=== PATIENT | male | born 1995 ===

== ENCOUNTER 2017-05-21 22:57 | Emergency (ER) | payer SELFPAY ==
[~2017-05-21] VITALS: Ht 160 cm; Wt 71.0 kg
[2017-05-21 23:04] VITALS: TEMP 36.4; Ht 160 cm; Wt 71.0 kg
[2017-05-21] MEDS ORDERED: AMOX500T3 PO (23:40)
[2017-05-21] MEDS ORDERED: AMOXICILLIN HOME PACK 250 MG/TAB PO ONE (23:45)
--- NOTE | 2017-05-21 23:48 | EMERGENCY ROOM VISIT NOTE ---
History First contact with patient: 23:09 Chief Complaint: EAR PAIN Stated Complaint: L EAR ACHE History of Present Illness The patient is a 21 year old [place] speaking male who presents to the Emergency Room with complaints of intermittent left ear pain for the past month , worsening over the past few days. History was collected through the [place] Interpretation Line. The patient reports that he does not have a family doctor or insurance. He has not seen anyone else for his symptoms. He denies any preceding respiratory symptoms including runny nose, congestion, sore throat or cough. He denies any known injury to the ear, including Q-tip usage. He has not noticed any drainage from the ear. He has not taken any medicine for the pain, and rates his discomfort a 6 out of 10. Review of Systems Review of systems was deferred secondary to language interpretation barrier Past Medical/Surgical History Medical Problems: (1) No significant past medical history Surgical Problems: (1) No history of previous surgery Family History Unknown Social History Smoking Status: Never Smoker Marital Status: single Occupation Status: employed Current/Historical Medications Scheduled Amoxicillin (Amoxil), 1 TAB PO TID Physical Exam Vital Signs Date Time Temp Pulse Resp B/P (MAP) Pulse Ox O2 Delivery O2 Flow Rate FiO2 05/21/17 23:51 75 119/80 98 05/21/17 23:04 36.4 73 16 137/69 98 Room Air Physical Exam CONSTITUTIONAL: Healthy and well nourished. Patient does not appear in any acute distress on exam. HEENT: Normocephalic, atraumatic. Pupils equal, round and reactive. Right ear is normal. Examination of the left ear shows notable TM erythema and purulent effusion. Bony landmarks and light reflex are absent. No TM perforation or external auditory canal erythema or edema. Nares are clear. OROPHARYNX: No tonsillar hypertrophy, exudates or postnasal drip. NECK: Full active range of motion without discomfort. RESPIRATORY: Clear to auscultation bilaterally with no wheezing, crackles, rhonchi or stridor. CARDIOVASCULAR: Regular rate and rhythm with no murmurs, rubs or gallops. INTEGUMENTARY: No rash or other significant dermatologic conditions noted. NEUROLOGIC: No focal neurologic deficits noted. Medical Decision & Procedures Medications Administered Medications (Trade) Dose Ordered Sig/Trevin Route Start Time Stop Time Status Last Admin Dose Admin Amoxicillin (Amoxil 250MG Home Pack) 1 homepack UD ONCE PO 12/7/17 23:45 05/21/17 23:46 DC 05/21/17 23:44 1 [facility] ED Course Patient history and physical exam were performed using a language interpretation line. Vital signs were also reviewed and normal. The patient will be treated with amoxicillin 500 mg 3 times a day 10 days. He was encouraged to alternate ibuprofen and Tylenol as needed for pain. The patient was provided a written prescription for the amoxicillin as he does not have a preferred pharmacy. I asked the patient to follow-up with ENT on-call, Dr. Valdovinos, in 2 weeks. If he has difficulty establishing this appointment, he was instructed to call the emergency department and ask to speak with the immigration case manager. I did discuss this with the immigration case manager to have a note entered into the system. The immigration case manager did provided contact information for [employer] [facility] that was written in [place]. The patient was instructed to return to the emergency department sooner for any progressively worsening symptoms, drainage from the ear or fever. The patient voiced understanding of his condition, plans for treatment and ENT follow-up. Medical Decision Medication Reconcilliation Current Medication List: was personally reviewed by me Blood Pressure Screening Patient's blood pressure: Normal blood pressure Impression Primary Impression: Left otitis media with effusion Departure Information Dispostion Home / Self-Care Prescriptions Amoxicillin (AMOXIL) 500 Mg Tab 1 TAB PO TID for 10 Days, #30 TAB Prov: Speedy Reid PA 05/21/17 Referrals Michael Valdovinos D.O. Forms HOME CARE DOCUMENTATION FORM, IMPORTANT VISIT INFORMATION Patient Instructions My [facility] Additional Instructions Take amoxicillin 500 mg every 8 hours for a total of 10 days. The bottle provided has 250 mg pills - take 2 of these every 8 hours until you get your prescription filled. The prescription is for an amoxicilin 500 mg capsule every 8 hours. Take this medication until it is completed. Ibuprofen 800 mg and/or Tylenol 1000 mg every 8 hours for pain. You may also alternate these medications for more effective pain relief: Ibuprofen --4 HRS--> Tylenol --4 HRS--> ibuprofen --4 HRS--> Tylenol .... Follow-up with an ear/nose/throat doctor (Dr. Valdovinos) for reevaluation in 2 weeks. If you have difficulty establishing this appointment, call the emergency department at [phone], and asked to speak with a immigration case manager who can review your visit records, and help facilitate this referral.
[2017-05-21 23:51] VITALS: BP 119/80; PULSE 75; O2SAT 98
== END 2017-05-21 23:53 | disposition home or self-care (01) ==
LOC: EDBD 22:59 → C.EDB 22:59 → C.EDC 23:53
DX: H65.92 Unspecified nonsuppurative otitis media, left ear (principal)